=== PATIENT | female | born 1960 | race Caucasian/White ===

== ENCOUNTER 2017-02-11 14:42 | Outpatient (CLI) | payer BC, OTHER ==
--- NOTE | 2017-02-11 16:08 | DIAGNOSTIC IMAGING REPORT ---
PROCEDURE: MG BILATERAL SCREENING W/CAD INDICATION: SCREENING TECHNIQUE: Bilateral CC and MLO digital views. COMPARISON: Mammograms from the [facility] 11/29/2013, 04/20/2012 and 03/23/2011. FINDINGS: Computer-aided detection applied. Minimally dense. No change. IMPRESSION: 1. Negative mammogram RESULT CODE: 1- Negative. A. A negative report should not delay biopsy if a dominant or clinically suspicious mass is present. 10-15% of cancers are not identified by x-ray. B. A negative report may reinforce clinical impression. C. Adenosis and dense breasts may obscure an underlying neoplasm. D. False positive reports average 6-10%. E.. A yearly screening mammogram is recommended. A reminder letter will be scheduled.
== END 2017-02-11 23:00 ==
LOC: MAM SRH 14:42
DX: Z12.31 Encounter for screening mammogram for malignant neoplasm of breast (principal)